=== PATIENT | female | born 1965 | race Caucasian/White ===

== ENCOUNTER 2018-05-02 08:12 | Day surgery (SDC) | payer MEDICAID ==
[~2018-05-02] VITALS: Ht 167.6 cm; Wt 105.9 kg
[2018-05-02] MEDS ORDERED: LIDOcaine 1% (10mg/ml)w/preservative injection 20ml MDV IJ STA (08:41)
[2018-05-02] MEDS ORDERED: albumin (human) 25% 100 ML IV solution IV PRN (08:50)
[2018-05-02] MEDS ORDERED: normal saline 1000ml 1,000 ML IV PRN (08:50)
[2018-05-02 09:09] VITALS: BP 136/82
[2018-05-02 09:30] VITALS: BP 138/63
[2018-05-02] MEDS ORDERED: PROBIOTIC PO (09:34)
[2018-05-02] MEDS ORDERED: PYRI50TA10 PO (09:34)
[2018-05-02] MEDS ORDERED: PRED15SO23 PO (09:34)
[2018-05-02] MEDS ORDERED: FOLI0.4T2 PO (09:34)
[2018-05-02] MEDS ORDERED: MIDO2.5T14 PO (09:34)
[2018-05-02] MEDS ORDERED: MELA3TAB PO (09:34)
[2018-05-02] MEDS ORDERED: VANC125C4 PO (09:34)
[2018-05-02] MEDS ORDERED: CYAN-19 PO (09:34)
[2018-05-02] MEDS ORDERED: CITA-278 PO (09:34)
[2018-05-02 09:45] VITALS: BP 161/62
[2018-05-02 10:00] VITALS: BP 123/71
[2018-05-02 10:15] VITALS: BP 141/73
== END 2018-05-02 10:30 | disposition home or self-care (01) ==
LOC: SSTAY O 08:12
PROVIDERS: ATTEND Radiology Diagnostic Radiology
DX: K70.11 Alcoholic hepatitis with ascites (principal); I12.9 Hypertensive chronic kidney disease with stage 1 through stage 4 chronic kidney disease, or unspecified chronic kidney disease; N18.9 Chronic kidney disease, unspecified; F17.210 Nicotine dependence, cigarettes, uncomplicated; F10.10 Alcohol abuse, uncomplicated; F41.8 Other specified anxiety disorders; Z79.2 Long term (current) use of antibiotics; Z87.11 Personal history of peptic ulcer disease; Z90.49 Acquired absence of other specified parts of digestive tract; Z72.89 Other problems related to lifestyle; Z98.890 Other specified postprocedural states; Z79.899 Other long term (current) drug therapy
CPT/HCPCS: 49083; J2001; J7030

== ENCOUNTER 2018-05-17 07:05 | Day surgery (SDC) | payer MEDICAID ==
[2018-05-17] VITALS (8 sets, daily range): BP systolic 101–134; BP diastolic 57–73
[~2018-05-17] VITALS: Ht 167.6 cm; Wt 107.0 kg
[~2018-05-17 07:05] MED LIST: CITA-278 PO; CYAN-19 PO; FOLI0.4T2 PO; LIDOcaine 1% 30ml preserv. free vial SQ STA; MELA3TAB PO; MIDO2.5T14 PO; PRED15SO23 PO; PROBIOTIC PO; PYRI50TA10 PO; VANC125C4 PO
[2018-05-17] MEDS ORDERED: albumin (human) 25% 100 ML IV solution IV PRN (07:25)
[2018-05-17] MEDS ORDERED: normal saline 1000ml 1,000 ML IV PRN (07:25)
== END 2018-05-17 10:12 | disposition home or self-care (01) ==
LOC: SSTAY O 07:05
PROVIDERS: ATTEND Radiology Diagnostic Radiology
DX: K70.11 Alcoholic hepatitis with ascites (principal); I12.9 Hypertensive chronic kidney disease with stage 1 through stage 4 chronic kidney disease, or unspecified chronic kidney disease; N18.9 Chronic kidney disease, unspecified; F41.8 Other specified anxiety disorders; F17.210 Nicotine dependence, cigarettes, uncomplicated; F10.21 Alcohol dependence, in remission; Z79.2 Long term (current) use of antibiotics; Z90.49 Acquired absence of other specified parts of digestive tract; Z87.11 Personal history of peptic ulcer disease; Z98.890 Other specified postprocedural states; Z79.899 Other long term (current) drug therapy
CPT/HCPCS: 49083; J3490; J7030; P9047

== ENCOUNTER → 2018-05-24 | Day surgery (SDC) | payer MEDICAID ==
[~2018-05-24] VITALS: Ht 170.2 cm; Wt 109.4 kg
[~2018-05-24] MED LIST changes: +MULT1TAB74 PO; +albumin (human) 25% 100 ML IV solution IV PRN; +normal saline 1000ml 1,000 ML IV PRN
[2018-05-24 08:25] VITALS: BP 130/80
[2018-05-24 09:06] VITALS: BP 134/84
[2018-05-24 09:15] VITALS: BP 142/72
[2018-05-24 09:31] VITALS: BP 134/62
[2018-05-24 09:45] VITALS: BP 128/74
[2018-05-24 12:47] VITALS: BP 135/80
== END | disposition home or self-care (01) ==
LOC: SSTAY O 07:48
PROVIDERS: ATTEND Radiology Diagnostic Radiology
DX: K70.31 Alcoholic cirrhosis of liver with ascites (principal); I12.9 Hypertensive chronic kidney disease with stage 1 through stage 4 chronic kidney disease, or unspecified chronic kidney disease; N18.9 Chronic kidney disease, unspecified; F41.8 Other specified anxiety disorders; F17.210 Nicotine dependence, cigarettes, uncomplicated; F10.21 Alcohol dependence, in remission; Z87.11 Personal history of peptic ulcer disease; Z90.49 Acquired absence of other specified parts of digestive tract; Z79.2 Long term (current) use of antibiotics; Z98.890 Other specified postprocedural states; Z79.899 Other long term (current) drug therapy
CPT/HCPCS: 49083; J3490; J7030; P9047; 92960

== ENCOUNTER 2018-05-31 07:38 | Day surgery (SDC) | payer MEDICAID ==
[~2018-05-31] VITALS: Ht 167.6 cm; Wt 114.4 kg
[~2018-05-31 07:38] MED LIST changes: -LIDOcaine 1% 30ml preserv. free vial SQ STA; -MULT1TAB74 PO; -albumin (human) 25% 100 ML IV solution IV PRN; -normal saline 1000ml 1,000 ML IV PRN
[2018-05-31] MEDS ORDERED: albumin (human) 25% 100 ML IV solution IV PRN (07:55)
[2018-05-31] MEDS ORDERED: normal saline 1000ml 1,000 ML IV PRN (07:55)
[2018-05-31 08:00] VITALS: BP 152/101
[2018-05-31] MEDS ORDERED: MULT1TAB74 PO (08:04)
[2018-05-31 08:50] VITALS: BP 133/83
[2018-05-31] MEDS ORDERED: LIDOcaine 1% 30ml preserv. free vial SQ ONE (09:00)
[2018-05-31 09:05] VITALS: BP 134/78
[2018-05-31 09:20] VITALS: BP 131/79
[2018-05-31 09:30] VITALS: BP 134/88
== END 2018-05-31 09:40 | disposition home or self-care (01) ==
LOC: SSTAY O 07:38
PROVIDERS: ATTEND Radiology Diagnostic Radiology
DX: K70.31 Alcoholic cirrhosis of liver with ascites (principal); I12.9 Hypertensive chronic kidney disease with stage 1 through stage 4 chronic kidney disease, or unspecified chronic kidney disease; N18.9 Chronic kidney disease, unspecified; F17.210 Nicotine dependence, cigarettes, uncomplicated; F41.8 Other specified anxiety disorders; F10.21 Alcohol dependence, in remission; Z90.49 Acquired absence of other specified parts of digestive tract; Z87.11 Personal history of peptic ulcer disease; Z79.2 Long term (current) use of antibiotics; Z98.890 Other specified postprocedural states; Z79.899 Other long term (current) drug therapy
CPT/HCPCS: 49083; J3490; J7030; P9047

== ENCOUNTER 2018-06-06 07:07 | Day surgery (SDC) | payer MEDICAID ==
[~2018-06-06] VITALS: Ht 167.6 cm; Wt 109.4 kg
[2018-06-06] VITALS (8 sets, daily range): BP systolic 140–172; BP diastolic 73–96
[~2018-06-06 07:07] MED LIST changes: -CITA-278 PO; -CYAN-19 PO; -FOLI0.4T2 PO; +LIDOcaine 1% 30ml preserv. free vial SQ STA; -MELA3TAB PO; -MIDO2.5T14 PO; +MULT1TAB74 PO; -PROBIOTIC PO; -PYRI50TA10 PO; -VANC125C4 PO
[2018-06-06] MEDS ORDERED: albumin (human) 25% 100 ML IV solution IV PRN (07:30)
[2018-06-06] MEDS ORDERED: normal saline 1000ml 1,000 ML IV PRN (07:30)
== END 2018-06-06 09:30 | disposition home or self-care (01) ==
LOC: SSTAY O 07:07
PROVIDERS: ATTEND Radiology Vascular & Interventional Radiology
DX: K70.31 Alcoholic cirrhosis of liver with ascites (principal); K72.90 Hepatic failure, unspecified without coma; N18.9 Chronic kidney disease, unspecified; Z79.899 Other long term (current) drug therapy; Z98.890 Other specified postprocedural states
CPT/HCPCS: 49083; J3490; J7030; P9047

== ENCOUNTER 2018-06-12 07:00 | Day surgery (SDC) | payer MEDICAID ==
[~2018-06-12] VITALS: Ht 167.6 cm; Wt 105.6 kg
[2018-06-12] VITALS (9 sets, daily range): BP systolic 118–143; BP diastolic 70–99
[~2018-06-12 07:00] MED LIST changes: -LIDOcaine 1% 30ml preserv. free vial SQ STA
[2018-06-12] MEDS ORDERED: LIDOcaine 1% 30ml preserv. free vial SQ ONE (09:00)
[2018-06-12] MEDS ORDERED: normal saline 1000ml 1,000 ML IV PRN (09:10)
[2018-06-12] MEDS: albumin (human) 25% 100 ML IV solution IV PRN ×2 (09:23→10:10)
== END 2018-06-12 10:38 | disposition home or self-care (01) ==
LOC: SSTAY O 07:00
PROVIDERS: ATTEND Radiology Vascular & Interventional Radiology
DX: K70.31 Alcoholic cirrhosis of liver with ascites (principal); K70.11 Alcoholic hepatitis with ascites; I12.9 Hypertensive chronic kidney disease with stage 1 through stage 4 chronic kidney disease, or unspecified chronic kidney disease; N18.9 Chronic kidney disease, unspecified; F17.210 Nicotine dependence, cigarettes, uncomplicated; F41.8 Other specified anxiety disorders; F10.21 Alcohol dependence, in remission; Z87.11 Personal history of peptic ulcer disease; Z90.49 Acquired absence of other specified parts of digestive tract; Z79.2 Long term (current) use of antibiotics; Z98.890 Other specified postprocedural states; Z79.899 Other long term (current) drug therapy; Z83.3 Family history of diabetes mellitus; Z83.6 Family history of other diseases of the respiratory system
CPT/HCPCS: 49083; J3490; J7030; P9047

== ENCOUNTER 2018-06-20 08:49 | Day surgery (SDC) | payer MEDICAID ==
[2018-06-20] VITALS (7 sets, daily range): BP systolic 98–131; BP diastolic 48–76
[~2018-06-20] VITALS: Ht 167.6 cm; Wt 100.0 kg
[~2018-06-20 08:49] MED LIST changes: +LIDOcaine 1% 30ml preserv. free vial SQ STA; -PRED15SO23 PO
[2018-06-20] MEDS ORDERED: albumin (human) 25% 100 ML IV solution IV PRN (09:10)
== END 2018-06-20 10:40 | disposition home or self-care (01) ==
LOC: SSTAY O 08:49
PROVIDERS: ATTEND Radiology Diagnostic Radiology
DX: K70.31 Alcoholic cirrhosis of liver with ascites (principal); K70.11 Alcoholic hepatitis with ascites; I12.9 Hypertensive chronic kidney disease with stage 1 through stage 4 chronic kidney disease, or unspecified chronic kidney disease; N18.9 Chronic kidney disease, unspecified; F17.210 Nicotine dependence, cigarettes, uncomplicated; F10.21 Alcohol dependence, in remission; Z90.49 Acquired absence of other specified parts of digestive tract; Z87.11 Personal history of peptic ulcer disease; Z79.2 Long term (current) use of antibiotics; Z98.890 Other specified postprocedural states; Z79.899 Other long term (current) drug therapy; F41.8 Other specified anxiety disorders; Z83.3 Family history of diabetes mellitus; Z83.6 Family history of other diseases of the respiratory system
CPT/HCPCS: 49083; J3490; P9047

== ENCOUNTER 2018-07-01 07:24 | Day surgery (SDC) | payer MEDICAID ==
[~2018-07-01] VITALS: Ht 167.6 cm; Wt 95.1 kg
[2018-07-01] VITALS (7 sets, daily range): BP systolic 108–122; BP diastolic 65–81
[2018-07-01] MEDS ORDERED: normal saline 1000ml 1,000 ML IV PRN (07:45)
[2018-07-01] MEDS ORDERED: albumin (human) 25% 100 ML IV solution IV PRN (07:45)
[2018-07-01] MEDS ORDERED: METO25TA6 PO (08:14)
[2018-07-01] MEDS ORDERED: LACT1CAP65 PO (08:14)
[2018-07-01] MEDS ORDERED: OMEP40CA37 PO (08:14)
[2018-07-01] MEDS ORDERED: ALBU8.5H8 INH (08:14)
[2018-07-01] MEDS ORDERED: IBUP-1984 PO (08:14)
== END 2018-07-01 09:40 | disposition home or self-care (01) ==
LOC: SSTAY O 07:24
PROVIDERS: ATTEND Radiology Diagnostic Radiology
DX: K70.31 Alcoholic cirrhosis of liver with ascites (principal); K70.11 Alcoholic hepatitis with ascites; I12.9 Hypertensive chronic kidney disease with stage 1 through stage 4 chronic kidney disease, or unspecified chronic kidney disease; N18.9 Chronic kidney disease, unspecified; F17.210 Nicotine dependence, cigarettes, uncomplicated; F10.21 Alcohol dependence, in remission; F41.8 Other specified anxiety disorders; Z87.11 Personal history of peptic ulcer disease; Z90.49 Acquired absence of other specified parts of digestive tract; Z79.1 Long term (current) use of non-steroidal anti-inflammatories (NSAID); Z87.19 Personal history of other diseases of the digestive system; Z79.2 Long term (current) use of antibiotics; Z79.899 Other long term (current) drug therapy; Z98.890 Other specified postprocedural states; Z83.3 Family history of diabetes mellitus; Z83.6 Family history of other diseases of the respiratory system
CPT/HCPCS: 49083; J3490; J7030; P9047

== ENCOUNTER 2018-07-09 07:40 | Day surgery (SDC) | payer MEDICAID ==
[2018-07-09] VITALS (7 sets, daily range): BP systolic 95–120; BP diastolic 60–73
[~2018-07-09] VITALS: Ht 167.6 cm; Wt 94.6 kg
[~2018-07-09 07:40] MED LIST changes: +ALBU8.5H8 INH; +IBUP-1984 PO; +LACT1CAP65 PO; +METO25TA6 PO; +OMEP40CA37 PO
[2018-07-09] MEDS ORDERED: albumin (human) 25% 100 ML IV solution IV PRN (08:05)
[2018-07-09] MEDS ORDERED: normal saline 1000ml 1,000 ML IV PRN (08:05)
== END 2018-07-09 09:45 | disposition home or self-care (01) ==
LOC: SSTAY O 07:40
PROVIDERS: ATTEND Radiology Diagnostic Radiology
DX: K70.31 Alcoholic cirrhosis of liver with ascites (principal); K70.11 Alcoholic hepatitis with ascites; I12.9 Hypertensive chronic kidney disease with stage 1 through stage 4 chronic kidney disease, or unspecified chronic kidney disease; N18.9 Chronic kidney disease, unspecified; F17.210 Nicotine dependence, cigarettes, uncomplicated; F10.21 Alcohol dependence, in remission; F41.8 Other specified anxiety disorders; Z79.2 Long term (current) use of antibiotics; Z79.1 Long term (current) use of non-steroidal anti-inflammatories (NSAID); Z87.11 Personal history of peptic ulcer disease; Z90.49 Acquired absence of other specified parts of digestive tract; Z98.890 Other specified postprocedural states; Z79.899 Other long term (current) drug therapy; Z83.3 Family history of diabetes mellitus; Z83.6 Family history of other diseases of the respiratory system
CPT/HCPCS: 49083; J3490; J7030; P9047

== ENCOUNTER 2018-07-17 07:42 | Day surgery (SDC) | payer MEDICAID ==
[~2018-07-17] VITALS: Ht 167.6 cm; Wt 97.5 kg
[2018-07-17] VITALS (8 sets, daily range): BP systolic 107–131; BP diastolic 49–76
[2018-07-17] MEDS ORDERED: albumin (human) 25% 100 ML IV solution IV PRN (08:05)
[2018-07-17] MEDS ORDERED: normal saline 1000ml 1,000 ML IV PRN (08:05)
[2018-07-17] MEDS ORDERED: LIDOcaine 1% (10mg/ml) 2ml vial ONE (08:16)
[2018-07-17] MEDS ORDERED: TRAZ-218 PO (08:27)
== END 2018-07-17 10:30 | disposition home or self-care (01) ==
LOC: SSTAY O 07:42
PROVIDERS: ATTEND Radiology Vascular & Interventional Radiology
DX: K70.31 Alcoholic cirrhosis of liver with ascites (principal); K70.11 Alcoholic hepatitis with ascites; I12.9 Hypertensive chronic kidney disease with stage 1 through stage 4 chronic kidney disease, or unspecified chronic kidney disease; N18.9 Chronic kidney disease, unspecified; F17.210 Nicotine dependence, cigarettes, uncomplicated; F41.8 Other specified anxiety disorders; F10.21 Alcohol dependence, in remission; Z86.69 Personal history of other diseases of the nervous system and sense organs; Z79.2 Long term (current) use of antibiotics; Z79.1 Long term (current) use of non-steroidal anti-inflammatories (NSAID); Z79.891 Long term (current) use of opiate analgesic; Z87.11 Personal history of peptic ulcer disease; Z90.49 Acquired absence of other specified parts of digestive tract; Z87.39 Personal history of other diseases of the musculoskeletal system and connective tissue; Z98.890 Other specified postprocedural states; Z79.899 Other long term (current) drug therapy; Z83.3 Family history of diabetes mellitus; Z83.6 Family history of other diseases of the respiratory system
CPT/HCPCS: 49083; J3490; J7030; P9047